=== PATIENT | male | born 1950 ===

== ENCOUNTER → 2018-05-20 14:07 | Outpatient (BNVA) | payer MEDICARE, MEDICAID, SELFPAY | PROVIDERS: PCP Family Medicine; Referring Provider Family Medicine; Visit Provider Nurse Practitioner Gerontology | DX: N31.9 Neuromuscular dysfunction of bladder, unspecified (principal); Z87.440 Personal history of urinary (tract) infections; E11.9 Type 2 diabetes mellitus without complications; Z79.84 Long term (current) use of oral hypoglycemic drugs | CPT/HCPCS: 99204 ==

== ENCOUNTER → 2023-05-21 13:45 | Outpatient (BNVA) | payer MEDICARE, MEDICAID, SELFPAY | PROVIDERS: PCP Nurse Practitioner Family; Referring Provider Nurse Practitioner Family; Visit Provider Student in an Organized Health Care Education/Training Program | DX: R05.9 Cough, unspecified (principal); G82.50 Quadriplegia, unspecified | CPT/HCPCS: 99205 ==

== ENCOUNTER → 2023-06-20 14:12 | Outpatient (BNVA) | payer MEDICARE, MEDICAID, SELFPAY | PROVIDERS: PCP Nurse Practitioner Family; Referring Provider Nurse Practitioner Family; Visit Provider Student in an Organized Health Care Education/Training Program | DX: R05.9 Cough, unspecified (principal); G82.50 Quadriplegia, unspecified | CPT/HCPCS: 99214 ==

== ENCOUNTER 2024-02-14 01:02 | Outpatient (CLI) | payer MEDICARE, MEDICAID, SELFPAY ==
--- NOTE | 2024-02-14 | DI.MRI_ITS ---
Exam(s) MR PELVIS WO/W EXAM: MR PELVIS WO/W CLINICAL HISTORY: RIGHT ISCHIAL TUBEROSITY ULCER, R/O OSTEOMYELITIS COMPARISON: CT CT UROGRAM from 06/04/2018 MR MRI LS PLEX/PELVIS SOFT/MSK WWO from 05/22/2021 CR XR CHEST 1 VW from 05/03/2023 FINDINGS: OSSEOUS AND SOFT TISSUES: When compared to the previous outside institution MRI study of May 2021 the previously described le ft side ischial tuberosity findings have mostly resolved. On the present study the main significant findings are on the right side. There is a low right butto ck region decubitus ulcer and subjacent air-gas filled tract which extends from the skin internally t o the level of the prominent pre-existing bony protuberance coming off the lateral aspect of the righ t ischial tuberosity and extending anteroinferiorly from this region. This appears to be a prior fra cture area of the right ischial tuberosity which has reattached to the parent bone and its distal tip is the attachment site of what appears to be part of the hamstring group. However, there is significant signal abnormality and enhancement in this region as well as significan t signal abnormality with in the mid and anterior aspect of this 6 cm length bony protuberance includ ing T2 hyperintense signal and confluent hypointense signal on non fat sat T1 weighted images, these findings highly suspicious for osteomyelitis of this bony structure. There is signal abnormality and enhancement in the subjacent and adjacent soft tissues. There is no peripherally enhancing discerni ble abscess cavity. The ipsilateral pubic rami and acetabulum exhibit normal marrow signal. There i s no evidence of signal abnormality to suggest osteomyelitis of the femoral head and neck and inter-s ubtrochanteric region nor elsewhere in the bones of the pelvis. 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 Cyst artifact f rom orthopedic plate in the subtrochanteric region of the opposite-left hip is again noted. No evide nce of osteomyelitis in the left hemipelvis. IMPRESSION: Low right buttock decubitus ulcer with underlying air-gas filled also track extending into a 6 cm vida h bony protuberance coming off the lateral aspect of the right ischial tuberosity. There is signal abnormality around and within this anteriorly projecting bony protuberance consistent with osteomyel itis. Findings discussed by phone with on-call surgeon at [facility] Dr. Eligio Dwyer 02/01 at 5:20 p.m. DATA REPOSITORY:
[2024-02-14] MEDS: Gadoterate meglumine 20 ML SYRINGE IVP (15:41)
[2024-02-14] MEDS: Normal Saline Flush 10 ML SYR IVP (15:41)
== END 2024-02-14 01:22 ==
LOC: DI 01:02
PROVIDERS: PCP Nurse Practitioner Family; Visit Provider Student in an Organized Health Care Education/Training Program
DX: R93.7 Abnormal findings on diagnostic imaging of other parts of musculoskeletal system (principal)
CPT/HCPCS: 72197